=== PATIENT | female | born 1990 | race Two or more races ===

== ENCOUNTER → 2024-09-27 | Outpatient (CLI) | payer OTHER ==
[2024-09-27 14:45] LABS: BASO # 0.1 10^3/uL (0.0-0.2); BASO % 0.4 % (0.0-1.0); EOS # 0.1 10^3/uL (0.0-0.5); EOS % 0.5 % (0.0-3.0); HEMATOCRIT 40.1 % (36.0-47.0); HEMOGLOBIN 13.6 g/dl (12.0-15.5); LYMPH # 3.5 10^3/uL (1.5-5.0); LYMPH % 23.9 % (24.0-44.0); MEAN CORPUSCULAR HEMOGLOBIN 31.2 pg (27.0-33.0); MEAN CORPUSCULAR HGB CONC 33.9 g/dl (32.0-36.5); MONO # 0.9 10^3/uL (0.0-0.8); MONO % 6.2 % (2.0-8.0); NEUTROPHILS # 10.1 10^3/uL (1.5-8.5); NEUTROPHILS % 68.7 % (36.0-66.0); PLATELET COUNT, AUTOMATED 292 10^3/uL (150-450); RED BLOOD COUNT 4.36 10^6/uL (4.00-5.40); WHITE BLOOD COUNT 14.8 10^3/uL (4.0-10.0)
[2024-09-27 14:57] LABS: LDH LACTATE DEHYDROGENASE 136 U/L (120-246)
[2024-09-27 14:58] LABS: C REACTIVE PROTEIN QUANTITATIV < 0.50 MG/DL (<1.0)
[2024-09-29 07:12] LABS: JAK2 MUTATIONS FOR PATH SENDOU See Pathology Report
== END ==
LOC: M PLALAB 11:47
PROVIDERS: ATTEND Internal Medicine Hematology
DX: D72.829 Elevated white blood cell count, unspecified (principal)

== ENCOUNTER 2024-11-03 10:47 | Emergency (ER) | payer OTHER ==
[~2024-11-03] VITALS: Ht 170.2 cm; Wt 69.8 kg
[2024-11-03] MEDS ORDERED: KP F1200 PO (10:53)
[2024-11-03] MEDS ORDERED: MULTTAB20 PO (10:54)
[2024-11-03] MEDS ORDERED: PEPC1TAB5 PO (10:54)
[2024-11-03 12:00] LABS: BASO % 0.3 % (0.0-1.0); EOS # 0.1 10^3/uL (0.0-0.5); EOS % 0.4 % (0.0-3.0); HEMATOCRIT 37.2 % (36.0-47.0); HEMOGLOBIN 12.6 g/dl (12.0-15.5); LYMPH # 2.4 10^3/uL (1.5-5.0); LYMPH % 17.3 % (24.0-44.0); MEAN CORPUSCULAR HGB CONC 33.9 g/dl (32.0-36.5); MEAN CORPUSCULAR VOLUME 91.6 fl (80.0-96.0); MONO # 0.8 10^3/uL (0.0-0.8); MONO % 6.1 % (2.0-8.0); NEUTROPHILS # 10.3 10^3/uL (1.5-8.5); NEUTROPHILS % 75.5 % (36.0-66.0); PLATELET COUNT, AUTOMATED 249 10^3/uL (150-450); RED BLOOD COUNT 4.06 10^6/uL (4.00-5.40); WHITE BLOOD COUNT 13.7 10^3/uL (4.0-10.0)
[2024-11-03 12:17] LABS: BLOOD UREA NITROGEN 9 MG/DL (9-23); CALCIUM LEVEL 9.2 MG/DL (8.5-10.1); CARBON DIOXIDE LEVEL 26 MMOL/L (20-31); CHLORIDE LEVEL 106 MMOL/L (98-107); CREATININE FOR GFR 0.63 MG/DL (0.55-1.30); GLOMERULAR FILTRATION RATE > 60.0 (>60); GLUCOSE, FASTING 84 MG/DL (60-100); POTASSIUM SERUM 3.9 MMOL/L (3.5-5.1); SODIUM LEVEL 140 MMOL/L (136-145)
[2024-11-03 12:33] LABS: HCG, SERUM QUANTITATIVE 52619.8 MIU/ML (<4.2)
[2024-11-03 15:12] LABS: KETONE, URINE AUTO RFX TRACE mg/dL (NEGATIVE); LEUKOCYTE ESTERASE UR AUTO RFX NEGATIVE (NEGATIVE); NITRITE, URINE AUTO RFX NEGATIVE (NEGATIVE); RBC, URINE AUTO RFX 3 /HPF (0-3); SQUAM EPITHELIAL CELL UR AURFX 1 /HPF (0-6); WBC, URINE AUTO RFX 2 /HPF (0-3)
[2024-11-03 15:46] VITALS: BP 109/65; TEMP 98.3; O2SAT 99
== END 2024-11-03 15:53 | disposition home or self-care (01) ==
LOC: M ED 10:47
DX: O26.851 Spotting complicating pregnancy, first trimester (principal); Z3A.13 13 weeks gestation of pregnancy; Z87.59 Personal history of other complications of pregnancy, childbirth and the puerperium

== ENCOUNTER → 2024-11-10 | Outpatient (REF) | payer OTHER ==
[~2024-11-10] MED LIST: KP F1200 PO; MULTTAB20 PO; PEPC1TAB5 PO
== END ==
LOC: M SFHCPLAZ 10:32
PROVIDERS: ATTEND Internal Medicine Hematology
DX: Z53.9 Procedure and treatment not carried out, unspecified reason (principal)

== ENCOUNTER → 2024-11-16 | Outpatient (CLI) | payer OTHER ==
[2024-11-16 15:49] LABS: BASO % 0.3 % (0.0-1.0); EOS # 0.1 10^3/uL (0.0-0.5); EOS % 0.6 % (0.0-3.0); HEMATOCRIT 35.7 % (36.0-47.0); HEMOGLOBIN 11.9 g/dl (12.0-15.5); LYMPH # 3.2 10^3/uL (1.5-5.0); LYMPH % 22.8 % (24.0-44.0); MEAN CORPUSCULAR HEMOGLOBIN 31.4 pg (27.0-33.0); MEAN CORPUSCULAR HGB CONC 33.3 g/dl (32.0-36.5); MEAN CORPUSCULAR VOLUME 94.2 fl (80.0-96.0); MONO # 1.1 10^3/uL (0.0-0.8); MONO % 7.8 % (2.0-8.0); NEUTROPHILS # 9.6 10^3/uL (1.5-8.5); NEUTROPHILS % 68.2 % (36.0-66.0); PLATELET COUNT, AUTOMATED 238 10^3/uL (150-450); RED BLOOD COUNT 3.79 10^6/uL (4.00-5.40)
== END ==
LOC: M PLALAB 11:38
PROVIDERS: ATTEND Internal Medicine Hematology
DX: D72.829 Elevated white blood cell count, unspecified (principal)

== ENCOUNTER 2024-12-10 08:14 | Emergency (ER) | payer OTHER ==
[~2024-12-10] VITALS: Ht 170.2 cm; Wt 72.0 kg
[2024-12-10] MEDS ORDERED: AMOX875T PO (11:42)
[2024-12-10 11:59] VITALS: BP 109/58; TEMP 97.7; O2SAT 99
== END 2024-12-10 12:04 | disposition home or self-care (01) ==
LOC: M ED 08:14
DX: O99.512 Diseases of the respiratory system complicating pregnancy, second trimester (principal); Z3A.19 19 weeks gestation of pregnancy

== ENCOUNTER 2025-01-13 14:37 | Emergency (ER) | payer OTHER ==
[~2025-01-13] VITALS: Ht 170.2 cm; Wt 77.3 kg
[~2025-01-13 14:37] MED LIST changes: +AMOX875T PO
[2025-01-13 14:43] VITALS: BP 111/64; TEMP 97.5; O2SAT 97
[2025-01-13] MEDS ORDERED: UNIS25TA3 PO (15:40)
[2025-01-13] MEDS ORDERED: ECOT81TA5 PO (15:40)
[2025-01-13] MEDS ORDERED: OMEP40CA4 PO (16:06)
== END 2025-01-13 15:04 | disposition admitted as inpatient to this hospital (09) ==
LOC: M ED 14:37
DX: Z53.21 Procedure and treatment not carried out due to patient leaving prior to being seen by health care provider (principal)

== ENCOUNTER 2025-01-13 14:54 | Outpatient (CLI) | payer OTHER ==
[~2025-01-13] VITALS: Ht 170.2 cm; Wt 77.2 kg
[2025-01-13 15:30] VITALS: BP 113/68
[2025-01-13] MEDS ORDERED: ECOT81TA5 PO (15:40)
[2025-01-13] MEDS ORDERED: UNIS25TA3 PO (15:40)
[2025-01-13] MEDS ORDERED: HOME MED LIST COMPLETE! XX SCH (15:45)
[2025-01-13] MEDS ORDERED: OMEP40CA4 PO (16:06)
[2025-01-13 16:32] VITALS: BP 109/62
[2025-01-13] MEDS: ONDANSETRON 4MG ORAL DISINTEGRATING TAB PO ONE (16:33)
[2025-01-13 16:36] VITALS: BP 109/62
[2025-01-13] MEDS: FIORICET TAB PO ONE (16:36)
== END 2025-01-13 20:05 | disposition home or self-care (01) ==
LOC: M LDO 14:54
PROVIDERS: ATTEND Advanced Practice Midwife
DX: O26.892 Other specified pregnancy related conditions, second trimester (principal); O98.311 Other infections with a predominantly sexual mode of transmission complicating pregnancy, first trimester; O99.810 Abnormal glucose complicating pregnancy; R51.9 Headache, unspecified; M54.50 Low back pain, unspecified; R10.2 Pelvic and perineal pain; R11.0 Nausea; A60.00 Herpesviral infection of urogenital system, unspecified; Z85.43 Personal history of malignant neoplasm of ovary; Z3A.23 23 weeks gestation of pregnancy

== ENCOUNTER 2025-04-15 21:45 | Outpatient (CLI) | payer OTHER ==
[~2025-04-15] VITALS: Ht 170.2 cm; Wt 82.0 kg
[~2025-04-15 21:45] MED LIST changes: +ECOT81TA5 PO; +OMEP40CA4 PO; +UNIS25TA3 PO
[2025-04-15 22:07] VITALS: BP 113/71
[2025-04-15] MEDS: ONDANSETRON 4MG 2ML VIAL IV ONE (22:40)
[2025-04-15] MEDS: LR 1,000 ML IV ONE (22:40)
== END 2025-04-15 23:37 | disposition home or self-care (01) ==
LOC: M LDO 21:45
PROVIDERS: ATTEND Advanced Practice Midwife
DX: O21.8 Other vomiting complicating pregnancy (principal); R51.9 Headache, unspecified; O09.513 Supervision of elderly primigravida, third trimester; Z3A.36 36 weeks gestation of pregnancy
CPT/HCPCS: 59025; 96374; G0463; J2405

== ENCOUNTER 2025-04-28 08:34 | Outpatient (CLI) | payer OTHER ==
[~2025-04-28] VITALS: Ht 170.2 cm; Wt 82.2 kg
[2025-04-28 09:12] VITALS: BP 120/80
[2025-04-28] MEDS ORDERED: IRON27TA2 PO (09:21)
== END 2025-04-28 09:50 | disposition home or self-care (01) ==
LOC: M LDO 08:34
PROVIDERS: ATTEND Obstetrics & Gynecology
DX: O47.1 False labor at or after 37 completed weeks of gestation (principal); O09.513 Supervision of elderly primigravida, third trimester; Z3A.38 38 weeks gestation of pregnancy
CPT/HCPCS: 59025; G0463